=== PATIENT | male | born 1945 | race Caucasian/White ===

== ENCOUNTER 2017-09-10 11:59 | Outpatient (CLI) | payer MEDICARE, MEDICAID ==
[2017-09-10] VITALS (22 sets, daily range): BP systolic 75–197; BP diastolic 36–93
== END 2017-09-10 23:59 | disposition home or self-care (01) ==
LOC: CARD DIAG 11:59
PROVIDERS: ATTEND Internal Medicine Cardiovascular Disease
DX: R55 Syncope and collapse (principal)
CPT/HCPCS: 93660